=== PATIENT | female | born 1990 | race Caucasian/White ===

== ENCOUNTER 2018-05-15 16:15 | Emergency (ER) | payer MEDICAID ==
--- NOTE | 2018-05-15 17:01 | Emergency Department Record ---
History of Present Illness - General Chief complaint: Eye Problem Stated complaint: RT EYE IRRITATION Time Seen by Provider: 05/15/18 16:41 Mode of Arrival: Ambulatory - History of Present Illness Initial comments: 4 am her eye is painful and red and she doesn't wear contacts Onset/Timin -: Hour(s) Onset Description: Unknown Location: Right eye Place: Home If Injury: None Eye Symptoms: Foreign body sensation Severity scale (1-10): 5 If Pain, Quality: Aching, Other Consistency: Constant Associated Symptoms: None Treatments Prior to Arrival: None - Related Data Visual acuity (L) = 20/: 25 Visual acuity (R) = 20/: 70 With correction: No Year of Tetanus Vaccination: 2017 Previous Rx's Medication Instructions Recorded Sulfacetamide Sodium [Bleph-10] 1 - 2 drop AFFEYE QID #5 ml 05/15/18 Allergies Allergy/AdvReac Type Severity Reaction Status Date / Time cefaclor [From Ceclor] Allergy Unknown hives Unverified 01/31/18 17:15 Travel Screening - Travel/Exposure Within Last 30 Days Have you traveled within the last 30 days?: No Review of Systems Reviewed: No additional complaints except as noted below Constitutional: Reports: As per HPI. Denies: Chills, Fever, Malaise, Night sweats, Weakness, Weight change Eyes: Reports: As per HPI, Other (redness and feels like something is in the eye ). Denies: Eye discharge, Eye pain, Photophobia, Vision change ENT: Reports: As per HPI. Denies: Congestion, Dental pain, Ear pain, Epistaxis , Hearing loss, Throat pain Respiratory: Reports: As per HPI. Denies: Cough, Dyspnea, Hemoptysis, Stridor, Wheezes Cardiovascular: Reports: As per HPI. Denies: Arrhythmia, Chest pain, Dyspnea on exertion, Edema, Murmurs, Orthopnea, Palpitations, Paroxysmal nocturnal dyspnea, Rheumatic Fever, Syncope Endocrine: Reports: As per HPI. Denies: Fatigue, Heat or cold intolerance, Polydipsia, Polyuria Gastrointestinal: Reports: As per HPI. Denies: Abdominal pain, Constipation, Diarrhea, Hematemesis, Hematochezia, Melena, Nausea, Vomiting Genitourinary: Reports: As per HPI. Denies: Abnormal menses, Discharge, Dyspareunia, Dysuria, Frequency, Hematuria, Incontinence, Retention, Urgency Musculoskeletal: Reports: As per HPI. Denies: Arthralgia, Back pain, Gout, Joint swelling, Myalgia, Neck pain Skin: Reports: As per HPI. Denies: Bruising, Change in color, Change in hair/ nails, Lesions, Pruritus, Rash Neurological: Reports: As per HPI. Denies: Abnormal gait, Confusion, Headache, Numbness, Paresthesias, Seizure, Tingling, Tremors, Vertigo, Weakness Psychiatric: Reports: As per HPI. Denies: Anxiety, Auditory hallucinations, Depression, Homicidal thoughts, Suicidal thoughts, Visual hallucinations Hematological/Lymphatic: Reports: As per HPI. Denies: Anemia, Blood Clots, Easy bleeding, Easy bruising, Swollen glands Past Medical History - SOCIAL HISTORY Smoking Status: Never smoker Alcohol Use: None Drug Use: None - RESPIRATORY Hx Respiratory Disorders: No - CARDIOVASCULAR Hx Cardio Disorders: No - NEURO Hx Neuro Disorders: No - GI Hx GI Disorders: No - Hx Genitourinary Disorders: No - ENDOCRINE Hx Endocrine Disorders: No - MUSCULOSKELETAL Hx Musculoskeletal Disorders: No - PSYCH Hx Psych Problems: Yes Hx Depression: Yes - HEMATOLOGY/ONCOLOGY Hx Hematology/Oncology Disorders: No Family Medical History Any Significant Family History?: No Physical Exam - General General Appearance: Alert, Oriented x3, Cooperative, No acute distress - Head Head exam: Normal inspection - Eye Eye exam: Normal appearance, PERRL, Conjunctival injection, EOMI, Other ( fluorscein postive on the conjunctivea on the lateral part right eye) Pupils: Normal accommodation With correction: No - ENT ENT exam: Normal exam, Mucous membranes moist, Normal external ear exam, Normal orophraynx, TM's normal bilaterally Ear exam: Normal external inspection. negative: External canal tenderness Nasal Exam: Normal inspection. negative: Discharge, Sinus tenderness Mouth exam: Normal external inspection, Tongue normal Teeth exam: Normal inspection. negative: Dental caries Throat exam: Normal inspection. negative: Tonsillar erythema, Tonsillar exudate - Neck Neck exam: Normal inspection, Full ROM. negative: Tenderness - Respiratory Respiratory exam: Normal lung sounds bilaterally. negative: Respiratory distress - Cardiovascular Cardiovascular Exam: Regular rate, Normal rhythm, Normal heart sounds - GI/Abdominal GI/Abdominal exam: Soft, Normal bowel sounds. negative: Tenderness - Rectal Rectal exam: Deferred - exam: Deferred - Extremities Extremities exam: Normal inspection, Full ROM, Normal capillary refill. negative: Tenderness - Back Back exam: Reports: Normal inspection, Full ROM. Denies: Muscle spasm, Rash noted, Tenderness - Neurological Neurological exam: Alert, Normal gait, Oriented X3, Reflexes normal - Psychiatric Psychiatric exam: Normal affect, Normal mood - Skin Skin exam: Dry, Intact, Normal color, Warm Course Vital Signs 05/15/18 16:27 Temperature 98.0 F Pulse Rate 75 Respiratory 20 Rate Blood Pressure 138/97 Pulse Ox 98 - Reevaluation(s) Reevaluation #1: slit lamp exam No FB and conjunctivea is abraded on the lateral conjunctivea 05/15/18 17:03 Disposition Clinical Impression: Conjunctival abrasion Qualifiers: Encounter type: initial encounter Laterality: right Qualified Code(s): S05.01XA - Injury of conjunctiva and corneal abrasion without foreign body, right eye, initial encounter Disposition: Home, Self-Care Condition: (1) Good Instructions: Corneal Abrasion (ED) Additional Instructions: follow up with DR Marquez if worse. please give her Dr Marquez number in [place] Prescriptions: Sulfacetamide Sodium [Bleph-10] 1 - 2 drop AFFEYE QID #5 ml Time of Disposition: 17:08 Quality - Quality Measures Quality Measures: N/A - Blood Pressure Screening Does Patient Have Any of the Following: No Blood Pressure Classification: Hypertensive Reading Systolic Measurement: 138 Diastolic Measurement: 97 Screening for High Blood Pressure: < First Hypertensive BP, F/U Documented > [ G8950] First Hypertensive Follow-up Interventions: Referral to alternative/primary care provider.
[2018-05-15] MEDS: SULFACETAMIDE SODIUM 15ML BTL OPTH ONE (17:22)
[2018-05-15] MEDS: PROPARACAINE HCL OPTH 15ML BTL OPTH ONE (17:23)
== END 2018-05-15 17:35 | disposition home or self-care (01) ==
LOC: ER 16:15
DX: S05.01XA Injury of conjunctiva and corneal abrasion without foreign body, right eye, initial encounter (principal); X58.XXXA Exposure to other specified factors, initial encounter; Y92.009 Unspecified place in unspecified non-institutional (private) residence as the place of occurrence of the external cause
CPT/HCPCS: 99283

== ENCOUNTER 2018-05-27 08:03 | Emergency (ER) | payer MEDICAID ==
--- NOTE | 2018-05-27 08:51 | Emergency Department Record ---
History of Present Illness - General Chief Complaint: Fall Injury Stated Complaint: FELL YESTERDAY KNEE HURT Time Seen by Provider: 05/27/18 08:29 Source: Patient Mode of Arrival: Wheelchair Limitations: No limitations - History of Present Illness Initial Comments: The patient is here due to R knee pain. She slipped on the ice yesterday and did the splits and injured her R knee. She has been able to walk on it since but it has been painful. The patient denies any other injuries. MD Complaint: Fall Onset/Timin -: Days(s) Fall From: Other When Fall Occurred: 24 hours REPAIR [employer]MAT[employer] Fall Witnessed: Yes, by family Place Fall Occurred: Home Loss of Consciousness: None Prolonged Down Time?: No Symptoms Prior to Fall: None Severity: Mild Severity scale (1-10): 3 Quality: Aching, Sharp Context: Tripped/slipped Associated Symptoms: Denies - [place] Coma Scale Eye Response: (4) Open spontaneously Motor Response: (6) Obeys commands Verbal Response: (5) Oriented [place] Total: 15 - Related Data Home Medications Medication Instructions Recorded Confirmed Last Taken Prenat 115/Iron Fum/Folic/Dss 1 each PO DAILY 05/27/18 05/27/18 Unknown [ 19 Tablet] Allergies Allergy/AdvReac Type Severity Reaction Status Date / Time cefaclor [From Ceclor] Allergy Unknown hives Unverified 01/31/18 17:15 Travel Screening - Travel/Exposure Within Last 30 Days Have you traveled within the last 30 days?: No Review of Systems Constitutional: Denies: Chills, Fever Eyes: Denies: Eye discharge ENT: Denies: Congestion Respiratory: Denies: Cough Past Medical History - SOCIAL HISTORY Smoking Status: Never smoker Alcohol Use: None Drug Use: None - RESPIRATORY Hx Respiratory Disorders: No - CARDIOVASCULAR Hx Cardio Disorders: No - NEURO Hx Neuro Disorders: No - GI Hx GI Disorders: No - Hx Genitourinary Disorders: No - ENDOCRINE Hx Endocrine Disorders: No - MUSCULOSKELETAL Hx Musculoskeletal Disorders: No - PSYCH Hx Psych Problems: Yes Hx Depression: Yes - HEMATOLOGY/ONCOLOGY Hx Hematology/Oncology Disorders: No Family Medical History Any Significant Family History?: No Physical Exam - General General Appearance: Alert, Oriented x3, Cooperative, No acute distress - Head Head exam: Atraumatic, Normocephalic - Eye Eye exam: Normal appearance - Extremities Extremities exam: Normal inspection, Normal capillary refill, Tenderness (There is diffuse anterior R knee tenderness with no bruising or swelling appreciated.) , Other (The R leg is NVI.). negative: Calf tenderness, Full ROM (The patient does not have full flexion > 90 degrees due to pain. There is no ligamentous laxity and the patellar ligament is intact.), Joint swelling, Pedal edema Course Vital Signs 05/27/18 08:28 Temperature 98.1 F Pulse Rate 106 H Respiratory 20 Rate Blood Pressure 144/99 Pulse Ox 97 - Reevaluation(s) Reevaluation #1: I did discuss the xray results with the patient. I clinically doubt any subluxed patella due to the fact the R patella appears the same as the L patella on ROM. Due to the mod joint effusion I am concerned the patient does have some ligamentous or meniscal injury of the R knee. We will immobilize the R knee and have the patient use crutches and see her PCP early next week for recheck. 05/27/18 09:31 Medical Decision Making - Data Complexity MDM Data: X-Ray Ordered and/or Reviewed - Radiology Data Radiology results: Report reviewed (R knee: Neg for fx, poss slight subluxed R patella, mod joint effusion. ) Disposition Disposition: Discharge Clinical Impression: Right knee sprain Qualifiers: Encounter type: initial encounter Involved ligament of knee: unspecified ligament Qualified Code(s): S83.91XA - Sprain of unspecified site of right knee , initial encounter Disposition: Home, Self-Care Condition: (2) Stable Instructions: Knee Sprain (ED) Additional Instructions: Please use the Immobilizer and crutches for 5 days with no weight bearing on the R leg. Please take Motrin for pain and ice the knee for the next 3 days. Please see your family doctor in 3-5 days for recheck. Forms: Patient Portal Access Time of Disposition: 09:34 Quality - Quality Measures Quality Measures: N/A - Blood Pressure Screening View Details: Yes Does Patient Have Any of the Following: No Blood Pressure Classification: Hypertensive Reading Systolic Measurement: 144 Diastolic Measurement: 99 Screening for High Blood Pressure: < First Hypertensive BP, F/U Documented > [ G8950] First Hypertensive Follow-up Interventions: Referral to alternative/primary care provider.
[2018-05-27] MEDS ORDERED: IBUPROFEN 600 MG TABLET PO ONE (09:29)
--- NOTE | 2018-05-29 13:36 | RADIOLOGY REPORT ---
DATE: 05/27/2018 at 0855 hours. EXAM: RIGHT KNEE, THREE VIEWS. HISTORY: Generalized knee pain one day post fall. TECHNIQUE: AP, lateral, and sunrise views of the right knee are obtained. COMPARISON: None. ENCOUNTER: Initial. FINDINGS: There is normal bone mineralization. No fracture, dislocation, or destructive bone lesion is seen. There is a moderate-sized suprapatellar joint effusion. On the sunrise view, there is apparent mild lateral subluxation of the patella. The articular relations are otherwise maintained. IMPRESSION: 1. NO ACUTE FRACTURE NOR DISLOCATION. 2. ON THE SUNRISE VIEW, THE PATELLA APPEARS MILDLY SUBLUXED LATERALLY. 3. MODERATE-SIZED JOINT EFFUSION. JOB NUMBER: [id number] MTDD
== END 2018-05-27 09:47 | disposition home or self-care (01) ==
LOC: ER 08:03
DX: S83.91XA Sprain of unspecified site of right knee, initial encounter (principal); W00.0XXA Fall on same level due to ice and snow, initial encounter; Y92.009 Unspecified place in unspecified non-institutional (private) residence as the place of occurrence of the external cause
CPT/HCPCS: 99283